=== PATIENT | female | born 1970 | race Asian ===

== ENCOUNTER 2017-09-28 08:13 | Day surgery (SDC) | payer MEDICAID ==
[2017-09-28] VITALS (14 sets, daily range): BP systolic 121–158; BP diastolic 74–95; PULSE 58–84; RESP 10–19; Ht 157.5 cm; Wt 57.7 kg
[~2017-09-28] VITALS: Ht 157.5 cm; Wt 57.7 kg
[~2017-09-28 08:13] MED LIST: CEFAZOLIN 1 GM INJ ONE; CEFAZOLIN 2 GM/50 ML (PMX) 50 ML IVPB ONE; DEXAMETHASONE 4 MG/ML 1 ML INJ ONE; LIDOCAINE 2% (SDV) 5 ML INJ ONE; ONDANSETRON 4 MG INJ ONE; SOD CHLORIDE 0.9% 1,000 ML IV SCH
[2017-09-28] MEDS ORDERED: LIDOCAINE 1%/EPI 30 ML INJ ONE (09:14)
[2017-09-28] MEDS ORDERED: PROPOFOL 100 ML ONE (09:18)
[2017-09-28] MEDS ORDERED: MIDAZOLAM 1 MG/ML 2 ML INJ IV PRN (10:00)
[2017-09-28] MEDS ORDERED: MEPERIDINE 25 MG INJ IV PRN (10:00)
[2017-09-28] MEDS ORDERED: HYDROmorphONE (0.2 MG/ML) 10ML SYG IV PRN ×3 (10:00)
[2017-09-28] MEDS ORDERED: LABETALOL HCL 20MG INJ IV PRN (10:00)
[2017-09-28] MEDS ORDERED: KETOROLAC 30 MG INJ IV PRN (10:00)
[2017-09-28] MEDS ORDERED: DIPHENHYDRAMINE 50 MG INJ IV PRN (10:00)
[2017-09-28] MEDS ORDERED: ONDANSETRON 4 MG INJ IV PRN (10:00)
[2017-09-28] MEDS ORDERED: OXYCODONE/ACETAMINOPHEN (5/325) TAB PO PRN ×2 (10:00)
[2017-09-28] MEDS ORDERED: FENTAnyl 50 MCG/ML VIAL IV PRN ×2 (10:00)
[2017-09-28] MEDS ORDERED: METOCLOPRAMIDE 10 MG INJ IV PRN (10:00)
[2017-09-28] MEDS ORDERED: hydrALAzine 20 MG INJ IV PRN (10:00)
[2017-09-28] MEDS ORDERED: ALBUTEROL 0.083% (NEB) 2.5 MG/3 ML AMP HHN PRN (10:00)
[2017-09-28] MEDS ORDERED: EPHEDrine SULFATE 50 MG/5 ML SYG IV PRN (10:00)
--- NOTE | 2017-09-28 10:34 | SIPON ---
Date/Time of Note Date/Time of Note DATE: 09/28/17 TIME: 10:33 Operative Report Preoperative Diagnosis Right breast mass Postoperative Diagnosis Same Operation/Procedure Performed Excision of right breast mass Surgeon see signature line employment assistant Dr Suarez Anesthesia: general Estimated blood loss: 10 - 50 ml's Transfusion Required none Specimen Right breast mass Grafts/Implants none Complications none JAQUELIN LIN MD Sep 28, 2017 10:34
[2017-09-28] MEDS: FENTAnyl 50 MCG/ML VIAL IV PRN ×2 (10:59→11:13)
--- NOTE | 2017-09-28 23:46 | OPR ---
DATE OF OPERATION: 09/28/2017 PREOPERATIVE DIAGNOSIS: Right breast mass. POSTOPERATIVE DIAGNOSIS: Right breast mass. PROCEDURE: Excision of right breast mass. ANESTHESIA: General. ANESTHESIOLOGIST: Dr. pSann SURGEON: Sachin Paul MD INFRASTRUCTURE TECH: Juan Carlos Suarez M.D. INDICATIONS FOR PROCEDURE: The patient is a 47-year-old female who presented with a palpable mass a t approximately the 10 o'clock location of the right breast. It was tender to palpation. She reque sted surgical excision. She consented and was scheduled for surgery. DESCRIPTION OF PROCEDURE: The patient was brought to the operating theater, placed under general an esthesia. The right breast was prepped and draped in the usual sterile fashion. A small curvilinea r incision was made directly over the palpable mass. Subcutaneous tissue was dissected with cautery down into breast parenchyma. The palpable mass was identified. It was circumferentially dissected from the surrounding breast tissue, elevated, transected, and sent for permanent pathologic analysi s. The wound was irrigated. Bleeding was controlled with cautery, and the skin was then reapproxim ated with a 4-0 Vicryl suture in subcuticular fashion, and benzoin and Steri-Strips were applied. T he patient tolerated procedure well. The estimated blood loss was approximately 20 mL. There were no complications and the patient was transported in stable condition to the recovery room. Dictated By: SACHIN PAUL MD TL/NTS Conf#: [id number] DID#: [id number] CC: JUAN CARLOS SUAREZ MD;*[facility]*
== END 2017-09-28 12:30 | disposition home or self-care (01) ==
LOC: SDS 08:13
PROVIDERS: ATTEND Surgery Surgical Oncology
DX: D24.1 Benign neoplasm of right breast (principal)
CPT/HCPCS: 19120; 84703; 88307; J0690; J1100; J1885; J2405; J3010; Z7512; Z7610